=== PATIENT | female | born 1990 | race Caucasian/White ===

== ENCOUNTER 2017-08-25 08:48 | Inpatient (IN) | payer BC, OTHER ==
[~2017-08-25] VITALS: Ht 172.7 cm; Wt 56.7 kg
[2017-08-25 14:00] VITALS: BP 113/74
[2017-08-25] MEDS ORDERED: NICOTINE POLACRILEX 4 MG GUM-PK OF TEN BC PRN (14:00)
[2017-08-25] MEDS ORDERED: MIRALAX 17 GM POWD.PACK PO PRN (14:00)
[2017-08-25] MEDS ORDERED: diphenhydrAMINE 50 MG CAPSULE PO PRN (14:00)
[2017-08-25] MEDS ORDERED: MAGNESIUM HYDROXIDE 30 ML LIQUID UDC PO PRN (14:00)
[2017-08-25] MEDS ORDERED: DICYCLOMINE HCL 20 MG TABLET PO PRN (14:00)
[2017-08-25] MEDS ORDERED: ACETAMINOPHEN 325 MG TABLET PO PRN (14:00)
[2017-08-25] MEDS ORDERED: ONDANSETRON 4 MG/2 ML VIAL IM PRN (14:00)
[2017-08-25] MEDS ORDERED: LOPERAMIDE HCL 2 MG CAPSULE PO PRN ×2 (14:00)
[2017-08-25] MEDS ORDERED: NICOTINE 14 MG/24HR PATCH TD PRN (14:00)
[2017-08-25] MEDS ORDERED: ONDANSETRON ODT 4 MG TAB.RAPDIS SL PRN (14:00)
[2017-08-25] MEDS ORDERED: DOCUSATE SODIUM 250 MG CAPSULE PO PRN (14:00)
[2017-08-25] MEDS ORDERED: MAG HYDROX/AL HYDROX/SIMETH 30 ML LIQUID UDC PO PRN (14:00)
[2017-08-25] MEDS ORDERED: IBUPROFEN 600 MG TABLET PO PRN (14:00)
--- NOTE | 2017-08-25 14:00 | NUR ---
Pre-admission Note: Client is seen in intake at this time. Appears restless with constant body movements. Appears anxious with mild sweating noted. VS: BP 113/74, Temp 98.2, RR 16, PL 0/10, Pulse 93, O2 sat 100% RA. Alert and verbally responsive. Oriented x 4. Educated client on the admission process and was able to provide good verbal understanding regarding the admission process. Reports allergy to Amoxicillin. Wishes to be FULL CODE. Follows a regular diet at home. She reports past medical hx of anxiety, depression, hypothyroidism, anxiety, depression and insomnia. Denies any seizure history. Client states that she is currently homeless and does not have a current PCP at this time. Will continue with the admission process when client is up in the unit. MD Whittington seen and evaluated the patient at this time.
[2017-08-25] MEDS ORDERED: GABA800T2 PO (14:15)
[2017-08-25] MEDS ORDERED: LEVO25TA9 PO (14:15)
[2017-08-25] MEDS ORDERED: TRAZ-147 PO (14:15)
[2017-08-25] MEDS ORDERED: ESCI20TA PO (14:15)
[2017-08-25] MEDS ORDERED: LEVO50TA8 PO (14:15)
[2017-08-25] MEDS ORDERED: ROHTO EYE OP (14:15)
[2017-08-25] MEDS ORDERED: ONDA4TAB8 PO (14:15)
[2017-08-25] MEDS ORDERED: HYDR25CA PO (14:15)
[2017-08-25] MEDS ORDERED: VALA500T34 PO (14:15)
--- NOTE | 2017-08-25 14:28 | NUR ---
Admission Note: Admitted a 27 year old female under the care of Dr. Jose Whittington for medically supervised withdrawal from heroin. Patient is alert and oriented x 4. Denies S/I or H/I. No AV hallucinations noted. Respirations even and unlabored. No SOB noted. Skin warm and moist to touch. Body search done. No contraband was found. Skin is clear and intact. No skin breakdown noted. Abdomen soft and non-distended with (+) BS in all 4 quadrants. Reports LBM was 08/23/2017. Voids independently. Bladder soft and non-distended. Able to provide urine for UDS. 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 Patient denies any seizure history. Reports allergies to Amoxicillin. Wishes to be FULL CODE. Follows a regular diet at home. The patient reports recently achieving 87 days of sobriety but relapsed for 2 weeks. Has family hx of substance abuse but declines to explain who. Patient appears intoxicated from recent polysubstance ingestion prior to admission. Patient reports multiple treatment programs in the past, but the latest being in an [facility] and lives in a sober living last month. Substance Use: 1. Heroin - since 25 years old, injects IV 1.5 grams of Heroin daily x 2 weeks. Last use was on 08/25/2017 at 1100, 0.2 grams 2. Methamphetamine - since 26 years old. Injects/Smokes 0.5 grams dailly x 2 weeks. Last use was on 08/25/2017 at 0300, 0.2 grams 3. ETOH - binge drinking any beer or liquor intermittently on a non-daily basis. Last drink was 2 days prior to admission. Dr. Whittington in to see the patient and orders entered. Education and orientation to the unit provided. On fall and seizure precautions. Will continue to monitor.
[2017-08-25 14:44] LABS: *URINE HCG, QUAL NEGATIVE (NEGATIVE)
[2017-08-25 16:00] VITALS: BP 120/87
[2017-08-25] MEDS: CLONIDINE HCL 0.1 MG TABLET PO PRN (16:06)
[2017-08-25] MEDS: GABAPENTIN 400 MG CAPSULE PO SCH ×2 (16:06→21:07)
[2017-08-25] MEDS: METHOCARBAMOL 750 MG TABLET PO PRN (16:06)
--- NOTE | 2017-08-25 16:06 | NUR ---
Clonidine 0.1mg PO/Robaxin 750 mg PO given: Patient noted with complain of anxiety, chills, and hot flashes and muscle aches. PL 5/10. Non-pharmacological interventions provided but ineffective. Medicated patient with Clonidine 0.1mg PO/Robaxin 750 mg PO as ordered. Will monitor for effectiveness.
[2017-08-25 16:09] LABS: *AMPHETAMINE, URINE POSITIVE (NEGATIVE); *BARBITURATE, URINE NEGATIVE (NEGATIVE); *CANNABINOID, URINE NEGATIVE (NEGATIVE); *COCCAINE, URINE NEGATIVE (NEGATIVE); *OPIATE, URINE POSITIVE (NEGATIVE); *PHENCYCLIDINE SCREEN,URINE NEGATIVE (NEGATIVE)
--- NOTE | 2017-08-25 16:49 | NUR ---
Psych MD Communication: Trazodone order Patient verbalized that she currently takes Trazodone 100 mg PO at HS and will definitely need a dose for tonight to help her go to sleep. Spoke with MD Alcantar and obtained orders for x 1 Trazodone 100 mg PO at bedtime. is driving and is unable to enter orders. Orders were noted and carried out.
--- NOTE | 2017-08-25 17:06 | NUR ---
Re-assessment: Robaxin and Clonidine Per patient, PRN Robaxin and Clonidine were effective in reducing patient's myalgia, PL 2/10, anxiety and restlessness.
[2017-08-25 17:59] LABS: BASOPHILS # (AUTO) 0.1 K/uL (0.0-8.0); BASOPHILS % (AUTO) 0.6 % (0.0-2.0); EOSINOPHILS # (AUTO) 0.5 K/uL (0.0-0.7); EOSINOPHILS % (AUTO) 3.8 % (0.0-7.0); HEMATOCRIT 33.3 % (31.2-41.9); HEMOGLOBIN 11.6 g/dL (10.9-14.3); LYMPHOCYTES # (AUTO) 2.7 K/uL (20.0-40.0); LYMPHOCYTES % (AUTO) 20.7 % (20.5-51.5); MEAN CORPUSCULAR HEMOGLOBIN 30.3 uug (24.7-32.8); MEAN CORPUSCULAR HGB CONC 35 g/dL (32.3-35.6); MEAN CORPUSCULAR VOLUME 86.8 fL (75.5-95.3); MONOCYTES # (AUTO) 1.4 K/uL (2.0-10.0); MONOCYTES % (AUTO) 10.7 % (0.0-11.0); NEUTROPHILS # (AUTO) 8.3 K/uL (1.8-8.9); NEUTROPHILS % (AUTO) 64.2 % (38.5-71.5); PLATELET COUNT (AUTO) 397 K/uL (179-408); RED BLOOD CELL COUNT(AUTO) 3.84 MIL/uL (3.63-4.92); WHITE BLOOD COUNT (AUTO) 12.9 K/uL (3.8-11.8)
[2017-08-25 18:06] LABS: ALANINE AMINOTRANSFERASE 48 U/L (14-59); ALKALINE PHOSPHATASE 73 U/L (50-136); ASPARTATE AMINOTRANSFERASE 21 U/L (15-37); CARBON DIOXIDE 24 mmol/L (21-32); CHLORIDE 98 mmol/L (98-107); CREATININE 0.7 mg/dL (0.6-1.3); GLUCOSE 80 mg/dL (74-106); MAGNESIUM 1.8 mg/dL (1.8-2.4); POTASSIUM 2.9 mmol/L (3.5-5.1); TOTAL PROTEIN, SERUM 6.7 g/dL (6.4-8.2); UREA NITROGEN, BLOOD 4 mg/dL (7-18)
[2017-08-25 18:12] LABS: THYROID STIMULATING HORMONE 3.981 mIU/mL (0.358-3.740)
[2017-08-25 18:13] LABS: ETHANOL < 3 MG/DL (0-0)
[2017-08-25 18:31] LABS: BILIRUBIN,TOTAL 0.3 mg/dL (0.2-1.0)
--- NOTE | 2017-08-25 19:01 | NUR ---
End of Shift Notes: Patient will be starting her 4-day Subutex taper as ordered in AM. VS monitored closely. No significant abnormalities noted. Withdrawal symptoms were closely monitored. Initial COWs 7, patient presented with anxiety, myalgia and restlessness. Patient still appears intoxicated from polysubstance ingestion prior to admission. Medicated patient with Clonidine and Robaxin at 1606 with help after 1 hour. Patient was unable to participate in group and therapy sessions due to her withdrawal symptoms. Compliant with care and treatment. All needs met and attended. Will continue to monitor.
--- NOTE | 2017-08-25 19:15 | NUR ---
START OF SHIFT Received 27 year old female patient admitted on 08/25/17 for Heroin, Methamphetamine and ETOH dependency. Pt is full code with allergy to amoxicillin. She reports a PMHx of hypothyroidism, HSV-2, depression, anxiety and insomnia. She reports using Heroin IV 1.5 grams daily for 2 weeks. Last dose was 0.2 grams on 08/25/17 at 1100. Methamphetamine IV 1/2 gram daily for two weeks. Last dose was 0.2 grams on 08/25/17 and EOTH (beer or liquor) binge drinks intermittently. Last dose was 08/23/17. She is scheduled to start a 4 day Subutex taper. Per endorsement, skin is intact. She received PRN Robaxin and clonidine at 1600. Pt is alert and oriented x4, breathing even and unlabored. Safety measures in place. Will continue to monitor.
[2017-08-25] MEDS ORDERED: POTASSIUM CHLORIDE 20 MEQ TAB.PRT.SR PO ONE ×2 (19:45→22:00)
[2017-08-25] MEDS ORDERED: MAGNESIUM OXIDE 400 MG TABLET PO ONE (19:45)
[2017-08-25 20:00] VITALS: BP 110/71
[2017-08-25] MEDS ORDERED: TRAZODONE 100 MG TABLET PO ONE (21:00)
[2017-08-25] MEDS ORDERED: BUPRENORPHINE HCL 2 MG TAB.SUBL SL PRN (21:00)
[2017-08-25] MEDS ORDERED: LORAZEPAM 1 MG TABLET PO SCH (21:00)
[2017-08-25] MEDS: LORAZEPAM 1 MG TABLET PO PRN (22:59)
--- NOTE | 2017-08-25 22:59 | NUR ---
PRN ATIVAN Pt complains of anxiety, agitation and restlessness. PRN Ativan administered as ordered. Will monitor effectiveness.
--- NOTE | 2017-08-25 23:59 | NUR ---
PRN ATIVAN REASSESSMENT PRN medication effective. Pt lying in bed with eyes closed noted to be asleep. Breathing even and unlabored. Safety measures in place. Will monitor.
[2017-08-26] VITALS: BP 95/56
[2017-08-26 04:00] VITALS: BP 100/60
--- NOTE | 2017-08-26 07:12 | NUR ---
END OF SHIFT Pt is a 27 year old female patient admitted on 08/25/17 for Heroin, Methamphetamine and ETOH dependency. Pt is full code with allergy to amoxicillin. She is scheduled to start a 4 day Subutex taper today (08/26/17). At 2259 she received PRN Ativan. She slept a total of 5 hrs, Intake: 1600mL, Void: x2, BM:0, COWS:8. Pt remains alert and oriented x4, breathing even and unlabored. Safety measures in place. Endorsed to AM shift.
[2017-08-26] MEDS: LEVOTHYROXINE SODIUM 50 MCG TABLET PO SCH (07:19)
--- NOTE | 2017-08-26 07:30 | NUR ---
Start of Shift Notes: Received patient in her room. Alert and oriented x 4. Verbally responsive. Appears anxious. Stated "I'm so dope sick." Respirations even and unlabored. No SOB noted. Skin warm and moist to touch. Abdomen soft and non-distended. No complains of abdominal pain or discomfort noted. Bladder non-distended. No complains of dysuria noted. Voids independently. Ambulatory ad fco with steady gait. Patient is a 27 year old female admitted for opiate and methamphetamine dependence who was placed on a 5-day Subutex taper as ordered. No adverse reactions noted. Has past medical hx of insomnia, anxiety, depression and HSV-2. Allergic to amoxicillin. NKA. FULL CODE. Regular diet. On fall and seizure precautions. Educated patient on her current plan of care for the day and her medication regimen. Encouraged oral fluid intake and encouraged group participation to learn new skills to prevent relapse. Will continue to monitor
[2017-08-26 08:00] VITALS: BP 117/72
[2017-08-26] MEDS: GABAPENTIN 400 MG CAPSULE PO SCH ×3 (08:00→20:41)
[2017-08-26] MEDS: METHOCARBAMOL 750 MG TABLET PO PRN (08:00)
[2017-08-26] MEDS: CLONIDINE HCL 0.1 MG TABLET PO PRN (08:01)
[2017-08-26] MEDS: BUPRENORPHINE HCL 2 MG TAB.SUBL SL SCH ×3 (08:01→20:42)
[2017-08-26] MEDS: VALACYCLOVIR 500 MG PO SCH (08:02)
[2017-08-26] MEDS: LORAZEPAM 1 MG TABLET PO PRN ×2 (08:10→20:57)
--- NOTE | 2017-08-26 08:10 | NUR ---
Robaxin 750mg/Clonidine 0.1mg/Motrin/Ativan 2 mg PO given: Patient is noted to be anxious and tearful, complaining of myalgia, chills, hot flashes, sweating and complaining of 8/10 pain to patient's right wrist. COWS 12, also noted with gross tremors. Pulse 108 at rest. Medicated patient with Robaxin 750 mg PO for myalgia, Clonidine 0.1mg PO for sweatings, chills and hot flashes, Motrin 600 mg PO for right wrist pain and Ativan 2 mg PO for s/s of withdrawal.
[2017-08-26] MEDS ORDERED: TUBERCULIN,PURIF.PROT.DERIV. 5 TU/0.1 ML TEST ID ONE (09:00)
--- NOTE | 2017-08-26 09:10 | NUR ---
Re-assessment: Robaxin/Clonidine/Motrin/Ativan Patient verbalizes PL 4/10. Less anxiety, chlls, hot flashes, cold sweats and agitation noted. Patient verbalizes that Robaxin/ Clondine/Motrin and Ativan were effective.
[2017-08-26 10:36] LABS: CREATININE 0.8 mg/dL (0.6-1.3); MAGNESIUM 2.3 mg/dL (1.8-2.4); POTASSIUM 4.2 mmol/L (3.5-5.1)
[2017-08-26 10:42] LABS: EOSINOPHILS # (AUTO) 0.2 K/uL (0.0-0.7)
[2017-08-26 11:06] LABS: BASOPHILS % (AUTO) 0.3 % (0.0-2.0); EOSINOPHILS % (AUTO) 1.7 % (0.0-7.0); LYMPHOCYTES # (AUTO) 1.2 K/uL (20.0-40.0); LYMPHOCYTES % (AUTO) 8.5 % (20.5-51.5); MEAN CORPUSCULAR HEMOGLOBIN 29.8 uug (24.7-32.8); MEAN CORPUSCULAR HGB CONC 34 g/dL (32.3-35.6); MEAN CORPUSCULAR VOLUME 88.3 fL (75.5-95.3); MONOCYTES # (AUTO) 1.2 K/uL (2.0-10.0); MONOCYTES % (AUTO) 9.2 % (0.0-11.0); NEUTROPHILS # (AUTO) 10.9 K/uL (1.8-8.9); NEUTROPHILS % (AUTO) 80.3 % (38.5-71.5); PLATELET COUNT (AUTO) 441 K/uL (179-408); RED BLOOD CELL COUNT(AUTO) 4.21 MIL/uL (3.63-4.92); WHITE BLOOD COUNT (AUTO) 13.6 K/uL (3.8-11.8)
[2017-08-26 11:09] LABS: HEMATOCRIT 37.2 % (31.2-41.9); HEMOGLOBIN 12.6 g/dL (10.9-14.3)
[2017-08-26 12:00] VITALS: BP 111/61
--- NOTE | 2017-08-26 13:00 | NUR ---
MD Communication: Right wrist swelling Patient noted with right wrist swelling and pain. Noted with limited ROM. Notified Dr. Whittington with new orders. Orders noted and carried out.
[2017-08-26] MEDS ORDERED: KETOROLAC TROMETHAMINE 30 MG INJ IM PRN (13:15)
[2017-08-26 16:00] VITALS: BP 94/57
--- NOTE | 2017-08-26 16:22 | NUR ---
MD Communication: Right wrist results Notified Dr. Whittington of patient's right wrist x-ray results with NNO.
--- NOTE | 2017-08-26 19:04 | NUR ---
End of Shift Notes: Patient initiated her 5-day Subutex taper today as ordered. No adverse reactions noted. VS monitored closely. No significant abnormalities noted. Withdrawal symptoms were closely monitored. Initial COWS 12, patient presented with with myalgia, chills, hot flashes, sweats, anxiety, agitation, tremors, and goosebumps. Medicated patient with Robaxin, Clonidine, Motrin and Ativan as ordered at 0810 with help after 1 hour. Last COWS 6. Per patient, Subutex has been effective in reducing her withdrawal symptoms. Compliant with care and treatment. Patient was noted with right wrist swelling and pain. MD aware and X-ray taken. No abdnormalities noted. Unable to participate in group and activities due to her withdrawal symptoms. All needs met and attended. Will continue to monitor closely.
--- NOTE | 2017-08-26 19:15 | NUR ---
START OF SHIFT Received 27 year old female patient admitted on 08/25/17 for Heroin, Methamphetamine and ETOH dependency. Pt is full code with allergy to amoxicillin. She reports a PMHx of hypothyroidism, HSV-2, depression, anxiety and insomnia. She reports using Heroin IV 1.5 grams daily for 2 weeks. Last dose was 0.2 grams on 08/25/17 at 1100. Methamphetamine IV 1/2 gram daily for two weeks. Last dose was 0.2 grams on 08/25/17 and EOTH (beer or liquor) binge drinks intermittently. Last dose was 08/23/17. She is currently receiving a 5 day Subutex taper and is tolerating well. Per endorsement, pt received x-ray to right wrist d/t complaints of pain/swelling. Xray negative for fracture. Pt with new order for PO Bactrim for right wrist. She received PRN Robaxin, Clonidine, Motrin and Ativan. Pt is alert and oriented x4, breathing even and unlabored. Safety measures in place. Will continue to monitor.
[2017-08-26 20:00] VITALS: BP 104/66
[2017-08-26] MEDS: TRAZODONE 100 MG TABLET PO SCH (20:41)
[2017-08-26] MEDS: SULFAMETH/TRIMETH 800/160 MG TABLET PO SCH (20:41)
[2017-08-26] MEDS: LACTOBACILLUS RHAMNOSUS GG 1 EACH CAPSULE PO SCH (20:41)
--- NOTE | 2017-08-26 20:57 | NUR ---
PRN ATIVAN Pt complains of increased anxiety and agitation. Pt noted to be restless in room. PRN Ativan administered as ordered. Will monitor effectiveness.
--- NOTE | 2017-08-26 21:57 | NUR ---
PRN ATIVAN REASSESSMENT PRN medication effective. Pt noted to be more calm. Pt reports decrease in anxiety and is lying comfortably in bed watching TV. Will continue to monitor.
[2017-08-27] VITALS: BP 123/67
--- NOTE | 2017-08-27 | NUR ---
PRN BENADRYL Pt complains of insomnia. PRN Benadryl administered as ordered. Safety measures in place. Will monitor effectiveness.
--- NOTE | 2017-08-27 01:00 | NUR ---
PRN BENADRYL REASSESSMENT PRN medication effective. Pt lying in bed with eyes closed noted to be asleep. Breathing even and unlabored. Safety measures in place. Will monitor.
--- NOTE | 2017-08-27 04:00 | NUR ---
VITALS REFUSED/ COWS DEFERRED 0400 vitals refused. COWS deferred d/t pt lying in bed with eyes closed noted to be asleep. Safety measures in place. Will continue to monitor.
[2017-08-27] MEDS: LEVOTHYROXINE SODIUM 25 MCG TABLET PO SCH (06:50)
--- NOTE | 2017-08-27 07:01 | NUR ---
END OF SHIFT Pt is a 27 year old female patient admitted on 08/25/17 for Heroin, Methamphetamine and ETOH dependency. Pt is full code with allergy to amoxicillin. She continues on a 5 day Subutex taper and is tolerating well. At 2056 she received PRN Ativan and at 0000 she received PRN Benadryl. She slept a total of 6 hrs, Intake: 855mL, Void: x1, BM:0, COWS:6. Pt remains alert and oriented x4, had complaints of anxiety/agitation during shift but was relieved with PRN Ativan. Safety measures in place. Endorsed to AM shift.
--- NOTE | 2017-08-27 07:15 | NUR ---
START OF SHIFT Received 27 year old female patient admitted on 08/25/17 for Heroin, Methamphetamine and ETOH dependency. Pt is full code with allergy to amoxicillin. She reports a PMHx of hypothyroidism, HSV-2, depression, anxiety and insomnia. She reports using Heroin IV 1.5 grams daily for 2 weeks. Last dose was 0.2 grams on 08/25/17 at 1100. Methamphetamine IV 1/2 gram daily for two weeks. Last dose was 0.2 grams on 08/25/17 and EOTH (beer or liquor) binge drinks intermittently. Last dose was 08/23/17. She is currently receiving a 5 day Subutex taper and is on day 4 and tolerating well. Per endorsement, pt received x-ray to right wrist d/t complaints of pain/swelling. Xray negative for fracture. Pt with order for PO Bactrim for right wrist. She received PRN ativan and benadryl on PM shift. Pt is alert and slightly anxious this morning. Last COWS 7 @ 0000. Safety measures in place. Will continue to monitor. Addendum: 08/27/17 at 1807 by DARIUS BONE RN CORRECTION : PATIENT IS ON DAY 2 OF A 5 DAY SUBUTEX TAPER
[2017-08-27 08:00] VITALS: BP 121/78
[2017-08-27] MEDS: VALACYCLOVIR 500 MG PO SCH (08:50)
[2017-08-27] MEDS: GABAPENTIN 400 MG CAPSULE PO SCH ×3 (08:50→20:59)
[2017-08-27] MEDS: LORAZEPAM 1 MG TABLET PO PRN ×2 (08:50→13:06)
--- NOTE | 2017-08-27 08:50 | NUR ---
PRN ATIVAN 2MG PO ATIVAN PRN GIVEN FOR ANXIETY AND FEELING OF PANIC, COWS =10, WILL CONTINUE TO MONITOR
[2017-08-27] MEDS: SULFAMETH/TRIMETH 800/160 MG TABLET PO SCH ×2 (08:51→20:59)
[2017-08-27] MEDS: LACTOBACILLUS RHAMNOSUS GG 1 EACH CAPSULE PO SCH ×2 (08:51→20:59)
[2017-08-27] MEDS: ESCITALOPRAM OXALATE 10 MG TABLET NG SCH (08:51)
[2017-08-27] MEDS ORDERED: BUPRENORPHINE HCL 2 MG TAB.SUBL SL SCH (09:00)
[2017-08-27 09:45] LABS: BASOPHILS % (AUTO) 0.3 % (0.0-2.0); EOSINOPHILS # (AUTO) 0.5 K/uL (0.0-0.7); HEMATOCRIT 36.4 % (31.2-41.9); HEMOGLOBIN 12.5 g/dL (10.9-14.3); LYMPHOCYTES # (AUTO) 1.7 K/uL (20.0-40.0); LYMPHOCYTES % (AUTO) 14.4 % (20.5-51.5); MEAN CORPUSCULAR HEMOGLOBIN 30.4 uug (24.7-32.8); MEAN CORPUSCULAR HGB CONC 34 g/dL (32.3-35.6); MEAN CORPUSCULAR VOLUME 88.7 fL (75.5-95.3); MONOCYTES # (AUTO) 1.2 K/uL (2.0-10.0); MONOCYTES % (AUTO) 9.6 % (0.0-11.0); NEUTROPHILS # (AUTO) 8.7 K/uL (1.8-8.9); NEUTROPHILS % (AUTO) 71.7 % (38.5-71.5); PLATELET COUNT (AUTO) 418 K/uL (179-408); WHITE BLOOD COUNT (AUTO) 12.1 K/uL (3.8-11.8)
--- NOTE | 2017-08-27 09:50 | NUR ---
PRN ATIVAN REASSESS PATIENT STATES ANXIETY HAS DECREASED COWS-6 CIWA 3, WILL CONTINUE TO MONITOR
[2017-08-27 09:58] LABS: CREATININE 0.6 mg/dL (0.6-1.3); POTASSIUM 4.3 mmol/L (3.5-5.1)
[2017-08-27 12:37] VITALS: BP 116/86
[2017-08-27] MEDS: CLONIDINE HCL 0.1 MG TABLET PO PRN ×2 (13:06→21:29)
--- NOTE | 2017-08-27 13:06 | NUR ---
PRN ATIVAN AND CLONIDINE 2MG PO ATIVAN PRN AND 0.1MG PO CLONIDINE PRN GIVEN FOR ANXIETY AND SENSE OF PANIC , COWS 8 WILL REASSESS IN 1 HOUR FOR EFFECTIVENESS.
--- NOTE | 2017-08-27 14:00 | NUR ---
RPR REACTIVE STATUS NOTIFIED DR RUSSO WHO WAS ON THE FLOOR OF PATIENT RPR REACTIVE, STATES HE WILL NOTIFY ID
[2017-08-27] MEDS: METHOCARBAMOL 750 MG TABLET PO PRN (14:05)
[2017-08-27] MEDS: HYDROXYZINE PAMOATE 25 MG CAPSULE PO PRN ×2 (14:05→21:29)
--- NOTE | 2017-08-27 14:05 | NUR ---
PRN ROBAXIN AND VISTARIL 750 MG PO ROBAXIN AND 25MG VISTARIL PO GIVEN PER PATIENT REQUEST FOR PAIN DUE TO SWOLLEN RIGHT HAND, COWS 5 WILL CONTINUE TO MONITOR
[2017-08-27] MEDS: BUPRENORPHINE HCL 2 MG TAB.SUBL SL SCH ×2 (14:06→20:59)
--- NOTE | 2017-08-27 14:06 | NUR ---
PRN REASSESS ATIVAN 2MG PO AND CLONIDINE 0.1MG PO EFFECTIVE PATIENT STATES SHE IS MUCH MORE RELAXED AND THE SENSE OF PANIC HAS DECREASED. WILL CONTINUE TO MONITOR
--- NOTE | 2017-08-27 15:06 | NUR ---
PRN REASSESS ROBAXIN 750 MG AND VISTARIL 25 MG EFFECTIVE FOR DISCOMFORT OF SWOLLEN HAND, PATIENT STATES SHE FEELS MORE RELAXED, WILL CONTINUE TO MONITOR.
[2017-08-27 15:13] LABS: HEPATITIS B SURFACE AG Negative (Negative)
[2017-08-27 16:00] VITALS: BP 88/48
--- NOTE | 2017-08-27 18:42 | NUR ---
END OF SHIFT PATIENT IS A 27 YEAR OLD FEMALE ADMITTED TO [facility] ON 08/25/17 FOR WITHDRAWAL FROM HEROIN, METHAMPHETAMINE AND ALCOHOL ( BEER/LIQUOR) PATIENT IS ON A 4 DAY SUBUTEX TAPER AND TODAY IS DAY 2 AND IS TOLERATING IT WELL. MRSA SWAB TAKEN AND RESULTS ARE NEGATIVE, PT IS RPR REACTIVE AND MD AWARE. RIGHT HAND SWOLLEN WITH CELLULITIS AND PATIENT IS TAKING PO BACTRIM Q12 HRS. PRN MEDS GIVEN ON THIS SHIFT : 2MG ATIVAN @ 0850 AND 1306 FOR ANXIETY AND PANIC FEELING, MEDS WERE EFFECTIVE IN REDUCING PATIENTS ANXIETY. PRN ROBAXIN 750MG PO AND VISTARIL 25MG PO GIVEN @ 1406 WITH POSITIVE RESULTS . NO BM X2 DAYS SO MIRALAX 17G OFFERED BUT PATIENT DECLINED . LAST COWS 4 @ 1600 . PATIENT ATTENDED GROUP TODAY AND REPORTS TO BE FEELING POSITIVE ABOUT HER RECOVERY. ALL SAFETY MEASURES IN PLACE, BED IN LOW LOCKED POSITION WITH SIDE RAILS UP X 2 . WILL GIVE REPORT TO NIGHT NURSE.
--- NOTE | 2017-08-27 19:15 | NUR ---
START OF SHIFT Patient is a 27-year-old female admitted on 08/25/17 for heroin, methamphetamine, and ETOH (beer or liquor) dependence. Patient is FULL code status, on a regular diet, with a known allergy to amoxicillin. Patient has past medical history of anxiety, depression, insomnia, hypothyroidism, and HSV-2. Patient is currently on a 4-day Subutex taper, tolerating moderately well with PRN medications on hand. Patient is on fall and seizure precautions. Upon assessment, patient is alert and oriented x3, skin dry and intact. Patient's hands are slightly edematous and pinkish/red, but per day shift nurse pt's hands have improved. Safety measures in place, bed locked in low position, side rails up x2, call light within reach. Will continue monitor.
[2017-08-27 20:00] VITALS: BP 95/55
[2017-08-27] MEDS: TRAZODONE 100 MG TABLET PO SCH (20:59)
--- NOTE | 2017-08-27 21:29 | NUR ---
PRN CLONIDINE AND VISTARIL Patient complains of anxiety and agitation. PRN Clonidine and Vistaril given PO at 2129. Safety measures in place, bed locked in low position, side rails up x2, call light within reach. Will reassess in one hour.
--- NOTE | 2017-08-27 22:29 | NUR ---
PRN CLONIDINE AND VISTARIL REASSESSMENT Patient is in bed, resting while watching television. Patient verbalizes feeling less anxious and less agitated. PRN Clonidine and Vistaril effective. Patient's respirations are 16/min, even and unlabored. Safety measures in place, call light within reach. Will continue to monitor.
--- NOTE | 2017-08-28 | NUR ---
VITAL SIGNS REFUSED, COWS DEFERRED Patient refused midnight vitals, COWS deferred due to patient asleep; to be assessed and scored while patient is awake. Respirations 16/min, even and unlabored. Safety measures in place, call light within reach. Will continue to monitor.
--- NOTE | 2017-08-28 04:00 | NUR ---
VITAL SIGNS REFUSED, COWS DEFERRED Patient refused 4AM vitals, COWS deferred due to patient asleep; to be assessed and scored while patient is awake. Respirations 16/min, even and unlabored. Safety measures in place, call light within reach. Will continue to monitor.
[2017-08-28] MEDS: LEVOTHYROXINE SODIUM 25 MCG TABLET PO SCH (07:01)
--- NOTE | 2017-08-28 07:07 | NUR ---
END OF SHIFT Patient is a 27-year-old female admitted on 08/25/17 for heroin, methamphetamine, and ETOH (beer or liquor) dependence. Patient is FULL code status, on a regular diet, with a known allergy to amoxicillin. Patient has past medical history of anxiety, depression, insomnia, hypothyroidism, and HSV-2. Patient is currently on a 4-day Subutex taper, tolerating moderately well with PRN medications on hand. Patient is on fall and seizure precautions. Patient slept for 10 hours, total intake of 1,605 mL, void x4, stool x0. Patient received PRN Clonidine and Vistaril; both were effective. Last COWS score was 4. Safety measures in place, bed locked in low position, side rails up x2, call light within reach. Will endorse to day shift.
[2017-08-28 08:00] VITALS: BP 112/63
--- NOTE | 2017-08-28 08:00 | NUR ---
START OF SHIFT NOTE Received report from night nurse, 27 year old female admitted for Heroin/ETOH/Meth dependence. Patient cont on 4 days Subutex taper tolerating well. Per endorsement pt was given PRN Clonidine/Vistaril effective per night nurse, last COWS was 4, slept for 10 hours. Patient received awake, alert and oriented x4. Patient was educated regarding plan of care for the day and medication regimen. Safety measures in place. Call light with in reach. Will continue to monitor.
[2017-08-28] MEDS: ESCITALOPRAM OXALATE 10 MG TABLET NG SCH (08:44)
[2017-08-28] MEDS: BUPRENORPHINE HCL 2 MG TAB.SUBL SL SCH ×3 (08:44→20:37)
[2017-08-28] MEDS: LACTOBACILLUS RHAMNOSUS GG 1 EACH CAPSULE PO SCH ×2 (08:44→20:35)
[2017-08-28] MEDS: SULFAMETH/TRIMETH 800/160 MG TABLET PO SCH ×2 (08:44→20:36)
[2017-08-28] MEDS: GABAPENTIN 400 MG CAPSULE PO SCH ×3 (08:44→20:36)
[2017-08-28] MEDS: VALACYCLOVIR 500 MG PO SCH (08:45)
[2017-08-28] MEDS: METHOCARBAMOL 750 MG TABLET PO PRN ×2 (09:37→20:44)
[2017-08-28] MEDS: CLONIDINE HCL 0.1 MG TABLET PO PRN (09:41)
--- NOTE | 2017-08-28 09:41 | NUR ---
PRN CLONIDINE/ROBAXIN patient was c/o of anxiety, agitation, muscle aches 5/10, PRN Robaxin 750mg PO/Clonidine 0.1mg PO given as ordered. Will cont to monitor and reassess.
--- NOTE | 2017-08-28 10:41 | NUR ---
CLONIDINE/ROBAXIN REASSESSMENT Per pt medications was effective in reducing his anxiety, agitation, and aches 08/24.
[2017-08-28] MEDS: LORAZEPAM 1 MG TABLET PO PRN (11:55)
--- NOTE | 2017-08-28 11:55 | NUR ---
PRN ATIVAN Patient was c/o of anxiety, agitation, light headed, PRN Ativan 2mg PO given as ordered. Will cont to monitor and reassess.
[2017-08-28 12:00] VITALS: BP 133/96
--- NOTE | 2017-08-28 12:55 | NUR ---
ATIVAN REASSESSMENT Per pt Ativan was effective in reducing her anxiety agitation.
[2017-08-28 14:49] LABS: BASOPHILS # (AUTO) 0.1 K/uL (0.0-8.0); BASOPHILS % (AUTO) 0.6 % (0.0-2.0); EOSINOPHILS # (AUTO) 0.6 K/uL (0.0-0.7); EOSINOPHILS % (AUTO) 5.8 % (0.0-7.0); HEMATOCRIT 36.5 % (31.2-41.9); HEMOGLOBIN 12.6 g/dL (10.9-14.3); LYMPHOCYTES # (AUTO) 2.8 K/uL (20.0-40.0); LYMPHOCYTES % (AUTO) 26.6 % (20.5-51.5); MEAN CORPUSCULAR HEMOGLOBIN 30.2 uug (24.7-32.8); MEAN CORPUSCULAR HGB CONC 35 g/dL (32.3-35.6); MEAN CORPUSCULAR VOLUME 87.6 fL (75.5-95.3); MONOCYTES % (AUTO) 9.9 % (0.0-11.0); NEUTROPHILS % (AUTO) 57.1 % (38.5-71.5); PLATELET COUNT (AUTO) 463 K/uL (179-408); RED BLOOD CELL COUNT(AUTO) 4.17 MIL/uL (3.63-4.92); WHITE BLOOD COUNT (AUTO) 10.6 K/uL (3.8-11.8)
[2017-08-28 16:00] VITALS: BP 115/88
--- NOTE | 2017-08-28 19:12 | NUR ---
END OF SHIFT NOTE Gave report to night nurse, 27 year old female admitted for Heroin/ETOH/Meth dependence. Patient remains A/O x4. Patient cont on 4 days Subutex taper tolerating well. During shift pt was given PRN Ativan/Clonidine/Robaxin noted to be effective. Pt encouraged to attend groups and activities. Pt seen socializing with peers. Most recent COWS was 5. All pertinent information provided to night nurse. Night nurse will continue to monitor.
--- NOTE | 2017-08-28 19:30 | NUR ---
START OF SHIFT Pt is a 27 year old female admitted for Heroin/ETOH/Meth dependence. Pt A/O x4. Patient cont on 4 days Subutex taper tolerating well.Skin is warm,dry and intact.Pt is allergic to Amoxicillin,on full code and regular diet. PMH of anxiety,depression,insomnia,hypothyroidism and HSV 2.Last COWS was 5. All safety measures in place. Call light with in reach. Will continue to monitor.
[2017-08-28 20:00] VITALS: BP 119/79
[2017-08-28] MEDS: TRAZODONE 100 MG TABLET PO SCH (20:36)
[2017-08-28] MEDS: HYDROXYZINE PAMOATE 25 MG CAPSULE PO PRN (20:44)
--- NOTE | 2017-08-28 20:45 | NUR ---
PRN MEDS PRN CLONIDINE AND VISTARIL GIVEN ORDERED FOR C/O ANXIETY.PRN ROBAXIN GIVEN FOR C/O MYALGIA.WILL MONITOR FOR EFFECTIVENESS.
--- NOTE | 2017-08-28 21:45 | NUR ---
PRN F/U PT IS CALM AND RESTING IN BED WITH EYES CLOSED.NO S/S OF DISTRESS NOTED.WILL CONTINUE TO MONITOR.
[2017-08-29] VITALS: BP 90/50
--- NOTE | 2017-08-29 | NUR ---
COWS DEFERRED DUE TO PT BEING FAST ASLEEP.BREATHING IS EVEN AND NONLABORED,ALL SAFETY MEASURES IN PLACE.WILL CONTINUE TO MONITOR.
[2017-08-29 04:00] VITALS: BP 92/49
--- NOTE | 2017-08-29 04:00 | NUR ---
COWS DEFERRED DUE TO PT BEING FAST ASLEEP.BREATHING IS EVEN AND NONLABORED,ALL SAFETY MEASURES IN PLACE.WILL CONTINUE TO MONITOR.
--- NOTE | 2017-08-29 06:44 | NUR ---
END OF SHIFT Pt is a 27 year old female admitted for Heroin/ETOH/Meth dependence. Pt A/O x4. Patient continues on 4 days Subutex taper as ordered and is tolerating well.Skin is warm,dry and intact.Pt is allergic to Amoxicillin,on full code and regular diet. PMH of anxiety,depression,insomnia,hypothyroidism and HSV 2.Last COWS was 5. PRN Robaxin,vistaril and clonidine were given and were effective; pt slept 8 hrs; fluid intake was 2000 mls, voided x 2. All safety measures in place. Call light with in reach. Will continue to monitor.
[2017-08-29] MEDS: LEVOTHYROXINE SODIUM 50 MCG TABLET PO SCH (07:12)
--- NOTE | 2017-08-29 07:50 | NUR ---
START OF SHIFT NOTE Received report from night nurse, 27 year old female admitted for Heroin/ETOH/Meth dependence. Patient cont on 4 days Subutex taper tolerating well. Per endorsement pt was given PRN Clonidine/Vistaril/Robaxin effective per night nurse, last COWS was 5, slept for 8 hours. Patient received awake, alert and oriented x4. Patient was educated regarding plan of care for the day and medication regimen. Safety measures in place. Call light with in reach. Will continue to monitor.
[2017-08-29 08:00] VITALS: BP 98/45
[2017-08-29] MEDS ORDERED: BUPRENORPHINE HCL 2 MG TAB.SUBL SL SCH (09:00)
[2017-08-29] MEDS: ESCITALOPRAM OXALATE 10 MG TABLET NG SCH (09:24)
[2017-08-29] MEDS: SULFAMETH/TRIMETH 800/160 MG TABLET PO SCH ×2 (09:24→20:36)
[2017-08-29] MEDS: GABAPENTIN 400 MG CAPSULE PO SCH ×3 (09:24→20:35)
[2017-08-29] MEDS: LACTOBACILLUS RHAMNOSUS GG 1 EACH CAPSULE PO SCH ×2 (09:24→20:36)
[2017-08-29] MEDS: VALACYCLOVIR 500 MG PO SCH (09:25)
[2017-08-29 12:00] VITALS: BP 95/55
[2017-08-29 16:00] VITALS: BP 90/56
--- NOTE | 2017-08-29 18:54 | NUR ---
END OF SHIFT NOTE Gave report to night nurse, 27 year old female admitted for Heroin/ETOH/Meth dependence. Patient remains A/O x4. Patient completed her 4 days Subutex taper tolerated well. During shift pt did not receive any PRN'S. Pt encouraged to attend groups and activities. Pt seen socializing with peers. Most recent COWS was 2. Patient scheduled for discharge in AM. All pertinent information provided to night nurse. Night nurse will continue to monitor.
--- NOTE | 2017-08-29 19:30 | NUR ---
START OF SHIFT Pt is a 27 y/o female admitted on 08/25/17 for ETOH, opiate and meth dependence. Pt is full code, allergic to amoxicillin, regular diet and on fall/seizure precautions. No reported seizure hx. Pt reports PMH of hypothyroidism, depression, anxiety and insomnia. Pt finished a 4 day Subutex taper and is scheduled to be d/c tomorrow. Upon assessment pt laying in bed watching TV and presents with anxiety, denies any other withdrawal symptoms. Respirations even and unlabored. Denies chest pain or SOB. Medications due. Safety measures in place. Call light within reach. Will continue to monitor.
[2017-08-29 20:00] VITALS: BP_SYST 94; BP_DIAS 53; BP_DIAS 61
[2017-08-29] MEDS: TRAZODONE 100 MG TABLET PO SCH (20:36)
[2017-08-29] MEDS: HYDROXYZINE PAMOATE 25 MG CAPSULE PO PRN (20:36)
--- NOTE | 2017-08-29 20:36 | NUR ---
PRN VISTARIL ADMINISTRATION Pt presents with anxiety. Safety measures in place. Call light within reach. Will continue to monitor.
--- NOTE | 2017-08-29 21:36 | NUR ---
PRN VISTARIL REASSESSMENT Pt laying in bed with eyes closed, respirations even and unlabored. Safety measures in place. Call light within reach. Will continue to monitor.
[2017-08-29] MEDS ORDERED: SULF1TAB3 PO (21:48)
[2017-08-29] MEDS ORDERED: GABA-536 PO (21:48)
[2017-08-29] MEDS ORDERED: METH-406 PO (21:48)
[2017-08-29] MEDS ORDERED: IBUP-1955 PO (21:48)
[2017-08-29] MEDS ORDERED: HYDR-3895 PO (21:48)
--- NOTE | 2017-08-30 | NUR ---
COWS DEFERRED AND VITALS REFUSED Pt laying in bed with eyes closed, COWS deferred, to be assessed when pt is awake per orders. Respirations even and unlabored. Safety measures in place. Call light within reach. Will continue to monitor.
[2017-08-30] MEDS: LEVOTHYROXINE SODIUM 50 MCG TABLET PO SCH (06:57)
--- NOTE | 2017-08-30 07:01 | NUR ---
END OF SHIFT Pt is a 27 y/o female admitted on 08/25/17 for ETOH, opiate and meth dependence. Pt is full code, allergic to amoxicillin, regular diet and on fall/seizure precautions. No reported seizure hx. Pt reports PMH of hypothyroidism, depression, anxiety and insomnia. Pt finished a 4 day Subutex taper and is scheduled to be d/c today. Pt presented with anxiety, denied any other withdrawal symptoms. Scheduled medications and PRN Vistaril administered, effective in S/S of withdrawal as verbalized by pt. Last COWS 1 at 1999. Pt slept 9 hours. Intake 796 ml, void x 3, stool x 1. Safety measures in place. Call light within reach. Pts needs have been met. Endorsed to day shift nurse.
--- NOTE | 2017-08-30 07:54 | NUR ---
START OF SHIFT NOTE Received report from night nurse, 27 year old female admitted for Heroin/ETOH/Meth dependence. Patient completed her 4 days Subutex taper tolerated well. Per endorsement pt was given PRN Vistaril effective per night nurse, last COWS was 1, slept for 9 hours. Patient received awake, alert and oriented x4. Patient was educated regarding plan of care for the day and medication regimen. Patient scheduled for discharge today. Safety measures in place. Call light with in reach. Will continue to monitor.
[2017-08-30 08:00] VITALS: BP 102/56
[2017-08-30] MEDS: GABAPENTIN 400 MG CAPSULE PO SCH (08:09)
[2017-08-30] MEDS: LACTOBACILLUS RHAMNOSUS GG 1 EACH CAPSULE PO SCH (08:09)
[2017-08-30] MEDS: ESCITALOPRAM OXALATE 10 MG TABLET NG SCH (08:10)
[2017-08-30] MEDS: SULFAMETH/TRIMETH 800/160 MG TABLET PO SCH (08:10)
[2017-08-30] MEDS: VALACYCLOVIR 500 MG PO SCH (08:11)
--- NOTE | 2017-08-30 09:00 | NUR ---
DISCHARGE NOTE Patient is in stable condition. Vital signs WNL,Patient is alert oriented x4, Skin intact warm and dry to touch. Patient denies any SI/HI ideations. All discharge paper work done signed and dated. Patient educated about discharge instructions, Pt verbalized understanding. Patient 's last COWS score was 0. Patient discharged from [facility] on 08/30/17 at 0900. Patient left the building, medications returned to the patient. MD has been contracted and notified of Pt's discharge.
== END 2017-08-30 09:00 | DRG 895 ==
LOC: SRC 13:20
PROVIDERS: ADMIT Internal Medicine; ATTEND Internal Medicine
PROC: HZ2ZZZZ Detoxification Services for Substance Abuse Treatment (ICD-10-PCS; principal; 2017-08-25)
PROC: HZ41ZZZ Group Counseling for Substance Abuse Treatment, Behavioral (ICD-10-PCS; 2017-08-27)
PROC: HZ31ZZZ Individual Counseling for Substance Abuse Treatment, Behavioral (ICD-10-PCS; 2017-08-28)
DX: F11.23 Opioid dependence with withdrawal (principal); E87.1 Hypo-osmolality and hyponatremia; L03.113 Cellulitis of right upper limb; A60.00 Herpesviral infection of urogenital system, unspecified; E03.9 Hypothyroidism, unspecified; F10.10 Alcohol abuse, uncomplicated; Y90.9 Presence of alcohol in blood, level not specified; F17.210 Nicotine dependence, cigarettes, uncomplicated; Z59.0 Homelessness; F41.9 Anxiety disorder, unspecified; G47.00 Insomnia, unspecified; Z81.1 Family history of alcohol abuse and dependence; Z80.3 Family history of malignant neoplasm of breast; Z80.0 Family history of malignant neoplasm of digestive organs; Z81.8 Family history of other mental and behavioral disorders; F32.9 Major depressive disorder, single episode, unspecified; Z86.19 Personal history of other infectious and parasitic diseases; S61.531S Puncture wound without foreign body of right wrist, sequela; X78.8XXS Intentional self-harm by other sharp object, sequela; E87.6 Hypokalemia; F15.23 Other stimulant dependence with withdrawal; B19.20 Unspecified viral hepatitis C without hepatic coma
CPT/HCPCS: 36415; 70030-TC; 73110; 80307; 80324; 80361; 83735; 84443; 84703; 85025; 86580; 86592; 86705; 86780; 86803; 87340; 87806; A4663; G0480; Q0163